=== PATIENT | female | born 1955 | race African-American/Black ===

== ENCOUNTER 2016-07-19 22:13 | Emergency (ER) | payer OTHER ==
--- NOTE | ~2016-07-19 | CR253 ---
[facility] A Service of [facility] RADIOLOGY TEXT RESULTS PATIENT: ZORA DSOUZA LOCATION: [facility] : 54 UNIT #: [id number] AGE: [address]: ARAM DUQUE APRN SEX: F ORDER DR: [id number] [facility] [address] [place], [place] [address] [id number] E MR#: [id number] Acc #: [id number] NAME: ZORA DSOUZA : 1955 SEX: F STUDY DATE/TIME: 07/19/2016 22:40 UNIT: CFTX ROOM: STUDY DESCRIPTION: CR Tibia and Fibula 2 Views Rt Attending Physician: Aram Duque Aprn Ordering Physician: Aram Duque Aprn Primary Care Physician: [facility], [facility]. MEDICAL IMAGING REPORT This report is preliminary unless electronic signature is present EXAM Right tibia-fibula. DATE OF EXAM 07/19/2016 HISTORY Knee and lower leg pain 1 week after a fall. Initial evaluation in the ED. TECHNIQUE AP and lateral radiographs of the right tibia and fibula. FINDINGS Patellar dislocation is best demonstrated on knee series reported separately. There is some pre-patellar soft tissue swelling. The tibia and fibula are negative with no evidence of fracture or other acute osseous abnormality. Right total knee arthroplasty. IMPRESSION 1. No evidence of acute fracture involving the tibia or fibula. 2. See knee series reported separately. 3. Right total knee arthroplasty. Dictated by... Joesph Palomino M.D. THIS IS AN ELECTRONICALLY VERIFIED REPORT Joesph Palomino M.D. at 07/20/2016 6:01 AM MORAIMA/jose TD: 07/19/2016 23:17 JOB #: [id number] [facility] A Service [facility] RADIOLOGY TEXT RESULTS PATIENT: ZORA DSOUZA LOCATION: [facility] : 54 UNIT #: [id number] AGE: [address]: ARAM DUQUE APRN SEX: F ORDER DR: MEDICAL IMAGING REPORT Page 1 of 1 COPY
--- NOTE | ~2016-07-19 | CR181 ---
[facility] A Service of [facility] RADIOLOGY TEXT RESULTS PATIENT: ZORA DSOUZA LOCATION: [facility] : 54 UNIT #: [id number] AGE: [address]: ARAM DUQUE APRN SEX: F ORDER DR: [id number] [facility] [address] [place], [place] [address] [id number] E MR#: [id number] Acc #: [id number] NAME: ZORA DSOUZA : 1955 SEX: F STUDY DATE/TIME: 07/19/2016 22:29 UNIT: CFTX ROOM: STUDY DESCRIPTION: CR Lumbar Spine 2 or 3 Views Attending Physician: Aram Duque Aprn Ordering Physician: Aram Duque Aprn Primary Care Physician: [facility], [facility]. MEDICAL IMAGING REPORT This report is preliminary unless electronic signature is present EXAM Lumbar spine series. DATE OF EXAM 07/19/2016 HISTORY 61-year-old female in the ED complaining of back pain and right knee pain after a fall 1 week ago. TECHNIQUE 3 view lumbar spine series. FINDINGS No fracture or other acute osseous abnormality is demonstrated. Severe degenerative disc space changes are present throughout the entire lumbar spine. Degenerative disc changes and severe facet arthropathy are greatest at L3-4, L4-5 and L5-S1. Lumbar vertebral alignment is normal. IMPRESSION 1. No acute osseous abnormality. 2. Severe multilevel degenerative disc space changes throughout the lumbar spine along with advanced lower lumbar degenerative facet arthropathy. Dictated by... Joesph Palomino M.D. THIS IS AN ELECTRONICALLY VERIFIED REPORT Joesph Palomino M.D. at 07/20/2016 6:01 AM MORAIMA/jose [facility] A Service [facility] RADIOLOGY TEXT RESULTS PATIENT: ZORA DSOUZA LOCATION: [facility] : 53 UNIT #: [id number] AGE: [address]: ARAM DUQUE APRN SEX: F ORDER DR: TD: 07/19/2016 23:18 JOB #: [id number] MEDICAL IMAGING REPORT Page 1 of 1 COPY
--- NOTE | ~2016-07-19 | CR173 ---
[facility] A Service of [facility] RADIOLOGY TEXT RESULTS PATIENT: ZORA DSOUZA LOCATION: [facility] : 53 UNIT #: [id number] AGE: [address]: ARAM DUQUE APRN SEX: F ORDER DR: [id number] [facility] [address] [place], [place] [address] [id number] E MR#: [id number] Acc #: [id number] NAME: ZORA DSOUZA : 1955 SEX: F STUDY DATE/TIME: 07/19/2016 22:42 UNIT: CFTX ROOM: STUDY DESCRIPTION: CR Knee 3 Views Rt Attending Physician: Aram Duque Aprn Ordering Physician: Aram Duque Aprn Primary Care Physician: [facility], [facility]. MEDICAL IMAGING REPORT This report is preliminary unless electronic signature is present EXAM Right knee series. DATE OF EXAM 07/19/2016 HISTORY 61-year-old female in the ED complaining of right knee and right lower leg pain for 1 week after a fall. TECHNIQUE 3 view right knee series. FINDINGS On the sunrise patellar image, there is complete lateral dislocation of the patella in relation to the femoral trochlear groove. Patient is status post total knee arthroplasty, and the arthroplasty components appear well seated. No visible fracture. At least a small knee joint effusion. Osseous loose bodies are visible within the joint space above the patella. These do not appear acute. IMPRESSION Lateral patellar dislocation. Total knee arthroplasty. Dictated by... Joesph Palomino M.D. THIS IS AN ELECTRONICALLY VERIFIED REPORT Joesph Palomino M.D. at 07/20/2016 6:01 AM MORAIMA/jose TD: 07/19/2016 23:15 [facility] A Service [facility] RADIOLOGY TEXT RESULTS PATIENT: ZORA DSOUZA LOCATION: [facility] : 53 UNIT #: [id number] AGE: [address]: ARAM DUQUE APRN SEX: F ORDER DR: [place] #: [id number] MEDICAL IMAGING REPORT Page 1 of 1 COPY
[~2016-07-19 22:13] MED LIST: ACETAMINOPHEN PO; ADVAIR 2501 DISK W/D PO; ALBUTEROL17 GM; ALBUTEROL17 GM INH; AMITRIPTYLINE H25 MG PO; AMITRIPTYLINE H50 MG PO; AMITRYPTYLINE PO; AMLODIPINE BESY10 MG PO; AMLODIPINE BESYL5 MG PO; AMOXICILLIN500 M1 PO; ASPIRIN81 M1 PO; AUGMENTIN875 MG PO; COMBIVENT14.7 GM INH; DICLOFENAC PO; DICLOFENAC SODI50 MG PO; DYAZIDE 37.5/251 CAP; ECOTRIN81 M1 PO; GABAPENTIN300 MG PO; GABAPENTIN400 M2 PO; GLUCOPHAGE XR500 MG PO; HUMULIN 70/30 V10 ML SUBQ; HYDROCHLOROTH12.5 M1 PO; HYDROCODON-ACE1 EAC1 PO; IBUPROFEN PO; KLOR-CON 88 ME1 PO; LANTUS100 UNITS/ SUBQ; LASIX PO; LISINOPRIL-HCTZ1 T14; LISINOPRIL-HCTZ1 T14 PO; LISINOPRIL20 MG PO; LORTAB 5/500 TA1 TA2 PO; LOSARTAN POTASS50 MG PO; MEDROL4 MG/DOSE- PO; METFORMIN HCL500 M1 PO; METFORMIN PO; METOPROLOL TAR25 MG PO; MILK OF MAGNESIA PO; NEURONTIN300 MG PO; NEURONTIN600 MG PO; NITROGLYCERIN0.4 MG SL; NITROGLYGERIN0.4 MG SL; NORVASC; NOVOLOG100 UNITS/; PERIACTIN4 M1 PO; PREDNISONE PO; PREDNISONE10 MG PO; PROCARDIA XL PO; RANITIDINE HCL150 M1 PO; ROBITUSSIN15 MG/5 ML PO; SEROQUEL; SEROQUEL XR150 MG PO; TALADINE150 MG PO; TIZANIDINE HCL4 M1 PO; TOPROL XL PO; TRAMADOL HCL50 M1 PO; TRAZODONE; ULTRAM PO; VICODIN 5/1 TAB 5/50 PO; VISTARIL PO; VITAMIN B-121000 MCG PO; ZANTAC; ZANTAC PO; ZESTORETIC 20/11 TAB PO; ZITHROMAX PO
== END 2016-07-20 00:25 | disposition home or self-care (01) ==
LOC: CED 22:13
DX: T84.022A Instability of internal right knee prosthesis, initial encounter (principal); I10 Essential (primary) hypertension; E11.9 Type 2 diabetes mellitus without complications; Z79.899 Other long term (current) drug therapy; X58.XXXA Exposure to other specified factors, initial encounter
CPT/HCPCS: 72100; 73562; 73590; 99284

== ENCOUNTER → 2016-10-23 | Emergency (ER) | payer OTHER ==
[~2016-10-23] VITALS: Ht 172.7 cm; Wt 142.9 kg
== END | disposition home or self-care (01) ==
LOC: CED 18:38 → CFTX 18:38 → CED 18:40
DX: S46.011A Strain of muscle(s) and tendon(s) of the rotator cuff of right shoulder, initial encounter (principal); I10 Essential (primary) hypertension; F17.210 Nicotine dependence, cigarettes, uncomplicated; W19.XXXA Unspecified fall, initial encounter; Y92.009 Unspecified place in unspecified non-institutional (private) residence as the place of occurrence of the external cause
CPT/HCPCS: 99283

== ENCOUNTER 2016-11-04 14:10 | Emergency (ER) | payer OTHER ==
[~2016-11-04] VITALS: Ht 172.7 cm; Wt 146.1 kg
--- NOTE | ~2016-11-04 | CR172 ---
[facility] A Service of [facility] & [facility] RADIOLOGY TEXT RESULTS PATIENT: ZORA DSOUZA LOCATION: [facility] : 53 UNIT #: [id number] AGE: [address]: Faheem Smith MD SEX: F ORDER DR: [id number] [facility] [address] [place], [place] [address] [id number] E MR#: [id number] Acc #: [id number] NAME: ZORA DSOUZA : 1955 SEX: F STUDY DATE/TIME: 11/04/2016 15:13 UNIT: CHAMP ROOM: STUDY DESCRIPTION: CR Knee 3 Views Lt Attending Physician: Faheem Smith M.D. Ordering Physician: Faheem Smith M.D. Primary Care Physician: [facility] MEDICAL IMAGING REPORT This report is preliminary unless electronic signature is present EXAM Left knee INDICATIONS Left knee pain status post fall. 1-day duration. FINDINGS Three views of the left knee without comparison. There is no acute fracture or dislocation. Alignment is anatomic. No knee effusion. IMPRESSION Anatomic alignment status post left total knee arthroplasty. Dictated by... Lj Petersen M.D. THIS IS AN ELECTRONICALLY VERIFIED REPORT Lj Petersen M.D. at 11/06/2016 10:30 AM HARRY/berkley TD: 11/05/2016 07:26 JOB #: [id number] MEDICAL IMAGING REPORT Page 1 of 1 COPY
--- NOTE | ~2016-11-04 | CR173 ---
[facility] A Service of [facility] RADIOLOGY TEXT RESULTS PATIENT: ZORA DSOUZA LOCATION: [facility] : 53 UNIT #: [id number] AGE: [address]: Faheem Smith MD SEX: F ORDER DR: [id number] [facility] [address] [place], [place] [address] [id number] E MR#: [id number] Acc #: [id number] NAME: ZORA DSOUZA : 1955 SEX: F STUDY DATE/TIME: 11/04/2016 15:15 UNIT: CHAMP ROOM: STUDY DESCRIPTION: CR Knee 3 Views Rt Attending Physician: Faheem Smith M.D. Ordering Physician: Faheem Smith M.D. Primary Care Physician: [facility], [facility]. MEDICAL IMAGING REPORT This report is preliminary unless electronic signature is present EXAM Right knee INDICATION Right knee pain status post fall. 1-day duration. FINDINGS Three views of the right knee without comparison. There is lateral dislocation of the patella. This is unchanged from the 07/19/2016 comparison. There is no fracture. IMPRESSION Lateral dislocation of the patella. This is similar to the 07/19/2016 comparison. Dictated by... Lj Petersen M.D. THIS IS AN ELECTRONICALLY VERIFIED REPORT Lj Petersen M.D. at 11/06/2016 10:28 AM HARRY/jose antonio TD: 11/05/2016 07:28 JOB #: [id number] MEDICAL IMAGING REPORT Page 1 of 1 COPY
--- NOTE | ~2016-11-04 | CT71 ---
[facility] A Service of [facility] RADIOLOGY TEXT RESULTS PATIENT: ZORA DSOUZA LOCATION: [facility] : 53 UNIT #: [id number] AGE: [address]: Faheem Smith MD SEX: F ORDER DR: [id number] [facility] [address] [place], [place] [address] [id number] E MR#: [id number] Acc #: [id number] NAME: ZORA DSOUZA : 1955 SEX: F STUDY DATE/TIME: 11/04/2016 16:26 UNIT: CHAMP ROOM: STUDY DESCRIPTION: CT Head Wo Contrast Attending Physician: Faheem Smith M.D. Ordering Physician: Faheem Smith M.D. Primary Care Physician: [facility], [facility]. MEDICAL IMAGING REPORT This report is preliminary unless electronic signature is present EXAM CT head INDICATION Fall. Left sided headache. Trauma. TECHNIQUE CT of the head without contrast. This CT exam was performed with one or more of the following radiation dose reduction techniques: automatic exposure control, adjustment of mA and/or kV according to patient size, and iterative reconstruction. COMPARISON None available. FINDINGS Axial noncontrast images were obtained from the skull base to the vertex. Ventricular size and configuration are normal. There is no evidence of acute infarct or hemorrhage. There are no extra-axial fluid collections. No mass lesion or mass effect is seen. There are no skull fractures. IMPRESSION Normal noncontrast head CT. Dictated by... Lj Petersen M.D. THIS IS AN ELECTRONICALLY VERIFIED REPORT Lj Petersen M.D. at 11/06/2016 10:30 AM HARRY/prince TD: 11/05/2016 08:36 [facility] A Service [facility] RADIOLOGY TEXT RESULTS PATIENT: ZORA DSOUZA LOCATION: [facility] : 53 UNIT #: [id number] AGE: [address]: Faheem Smith MD SEX: F ORDER DR: JOB #: [id number] MEDICAL IMAGING REPORT Page 1 of 1 COPY
--- NOTE | ~2016-11-04 | CT52 ---
[facility] A Service of [facility] RADIOLOGY TEXT RESULTS PATIENT: ZORA DSOUZA LOCATION: [facility] : 53 UNIT #: [id number] AGE: [address]: Faheem Smith MD SEX: F ORDER DR: [id number] [facility] [address] [place], [place] [address] [id number] E MR#: [id number] Acc #: [id number] NAME: ZORA DSOUZA : 1955 SEX: F STUDY DATE/TIME: 11/04/2016 16:33 UNIT: [facility]AMP ROOM: STUDY DESCRIPTION: CT Cervical Spine Wo Cont Attending Physician: Faheem Smith M.D. Ordering Physician: Faheem Smith M.D. Primary Care Physician: [facility] MEDICAL IMAGING REPORT This report is preliminary unless electronic signature is present EXAM CT cervical spine. Left-sided neck pain. TECHNIQUE CT cervical spine without contrast. Coronal and sagittal reconstructions were obtained. The CT exam was performed with one or more of the following radiation dose reduction techniques: automatic exposure control, adjustment of mA and/or kV according to patient size, and iterative reconstruction. COMPARISON None available. FINDINGS There is no acute fracture or subluxation of the cervical spine. Vertebral body height and alignment is normal. There is multilevel degenerative change throughout the cervical spine. This is most pronounced at C3-4 and C5-6. There is mild grade 1 anterolisthesis of C4 on C5 due to facet arthropathy. The prevertebral soft tissues are within normal limits. IMPRESSION 1. No acute traumatic findings in the cervical spine. 2. Multilevel degenerative changes of the cervical spine. Dictated by... Lj Petersen M.D. THIS IS AN ELECTRONICALLY VERIFIED REPORT Lj Petersen M.D. at 11/06/2016 10:30 AM [facility] A Service of [facility] RADIOLOGY TEXT RESULTS PATIENT: ZORA DSOUZA LOCATION: [facility] : 53 UNIT #: [id number] AGE: [address]: Faheem Smith MD SEX: F ORDER DR: HARRY/berkley TD: 11/05/2016 08:35 JOB #: [id number] MEDICAL IMAGING REPORT Page 1 of 1 COPY
--- NOTE | ~2016-11-04 | CR230 ---
[facility] A Service of [facility] RADIOLOGY TEXT RESULTS PATIENT: ZORA DSOUZA LOCATION: [facility] : 53 UNIT #: [id number] AGE: [address]: Faheem Smith MD SEX: F ORDER DR: [id number] [facility] [address] [place], [place] [address] [id number] E MR#: [id number] Acc #: [id number] NAME: ZORA DSOUZA : 1955 SEX: F STUDY DATE/TIME: 11/04/2016 15:23 UNIT: [facility] ROOM: STUDY DESCRIPTION: CR Shoulder Min 2 View Rt Attending Physician: Faheem Smith M.D. Ordering Physician: Faheem Smith M.D. Primary Care Physician: [facility] [place] MEDICAL IMAGING REPORT This report is preliminary unless electronic signature is present EXAM Shoulder right minimum 2 views HISTORY Right shoulder pain between neck and humeral head after a fall today ago. COMMENT Five films of the right shoulder submitted for review. They are technically limited by the patient's morbid obesity. There is subluxation inferiorly of the right humeral head. This could be due to the presence of a joint effusion or could be due to ligamentous laxity. No true dislocation is appreciated. There is evidence for arthritis with osteophyte formation margins of the humeral head and there is also apparently degenerative change at the acromioclavicular joint. No radiopaque foreign body is seen. IMPRESSION 1. There is some inferior subluxation of the right humeral head with respect to the glenoid. This can be seen in the setting of joint effusion or alternatively due to ligamentous laxity or injury. There does not appear to be true dislocation. No acute fractures appreciated. There is evidence for glenohumeral arthritis. 2. Please be aware that this study is significantly limited by the patient's morbid obesity despite obtaining 5 films. 3. Degenerative change at the acromioclavicular joint. Dictated by... Melani Riojas M.D. THIS IS AN ELECTRONICALLY VERIFIED REPORT Melani Riojas M.D. at 11/05/2016 4:55 PM SAC/cmm [facility]. [facility] A Service of [facility] RADIOLOGY TEXT RESULTS PATIENT: ZORA DSOUZA [id number] 53 UNIT #: [id number] AGE: [address]: Faheem Smith MD SEX: F ORDER DR: TD: 11/05/2016 07:39 JOB #: [id number] MEDICAL IMAGING REPORT Page 1 of 1 COPY
== END 2016-11-04 17:55 | disposition home or self-care (01) ==
LOC: CED 14:10
DX: M22.01 Recurrent dislocation of patella, right knee (principal); S80.02XA Contusion of left knee, initial encounter; S80.01XA Contusion of right knee, initial encounter; I10 Essential (primary) hypertension; E11.9 Type 2 diabetes mellitus without complications; J45.909 Unspecified asthma, uncomplicated; F17.200 Nicotine dependence, unspecified, uncomplicated; W01.0XXA Fall on same level from slipping, tripping and stumbling without subsequent striking against object, initial encounter; Y92.89 Other specified places as the place of occurrence of the external cause
CPT/HCPCS: 70450; 72125; 73030; 73562; 99284